=== PATIENT | female | born 1960 | race African-American/Black ===

== ENCOUNTER 2017-08-24 04:53 | Inpatient (IN) | payer OTHER, BC ==
[~2017-08-24] VITALS: Ht 172.7 cm; Wt 97.0 kg
[2017-08-24] VITALS (7 sets, daily range): BP systolic 116–163; BP diastolic 71–100
--- NOTE | ~2017-08-24 | H ---
[facility] [place] [address] HISTORY AND PHYSICAL Name: JOSE MANUEL GRAHAM Room #: 202-P ADM IN M.R.#: [id number] Admission: 08/24/17 Attend Phys: Karly Tate Discharge: Date of : 60 Report #: [id number] THIS REPORT FOR: //name// CC: Juma Tamez DATE OF SERVICE: 08/24/2017 HISTORY OF PRESENT ILLNESS: A 57-year-old female from a respiratory fdc with evidence of shortness of breath. This patient has ALS and is totally debilitated and really has a difficult time doing much for herself and became more short of breath during the night and had to be transferred here where the findings of left pneumonia with pleural effusion were identified and she was subsequently admitted. She has a long-standing history of ALS and has a tracheostomy. PAST MEDICAL HISTORY: Background history of hypertension, ulcerative colitis. She has had a previous cholecystectomy. MEDICATIONS: List which includes Flonase, Lexapro, Lasix, pantoprazole, potassium, multivitamin, carvedilol, losartan, tramadol, amitriptyline, and Colazal. ALLERGIES: SULFA CLASS. FAMILY HISTORY: Noncontributory. SOCIAL HISTORY: She is disabled. Does not smoke or drink, but smoked in the past. REVIEW OF SYSTEMS: Otherwise, negative. PHYSICAL EXAMINATION: GENERAL: Shows this lady to be awake, alert. She is able to communicate with a weak voice with a Pass[place] valve. HEENT: Otherwise, negative. NECK: Supple, without thyromegaly or adenopathy. CHEST: Diminished. CARDIOVASCULAR: Shows a regular rate and rhythm. ABDOMEN: Soft and nontender. EXTREMITIES: Showed the findings of generalized weakness from ALS. ASSESSMENT: This is a patient with recurrent respiratory failure from amyotrophic lateral sclerosis and poor pulmonary clearance with pneumonia and pleural effusion. [facility] [address] [place] [address] HISTORY AND PHYSICAL Name: JOSE MANUEL GRAHAM Room #: 202-P ADM IN [facility]#: [id number] Admission: 08/24/17 Attend Phys: Karly Tate Discharge: Date of : 60 Report #: [id number] PLAN: Pulmonary toilet. Pulmonary consultation. She may need a thoracentesis. By: [id number] Juma Tamez MD /nt
--- NOTE | ~2017-08-24 | HC ---
[facility] [place] [address] CONSULTATION Name: JOSE MANUEL GRAHAM Karly Room #: 244-P ADM IN M.R.#: [id number] Admission: 08/24/17 Attend Phys: Karly Tate Discharge: Date of : 60 Report #: [id number] THIS REPORT FOR: //name// CC: Juma Tamez TYPE OF REPORT: Infectious diseases consultation. REASON FOR CONSULTATION: I was asked to evaluate concerning fever post-bronchoscopy. HISTORY OF PRESENT ILLNESS: The patient was a 57-year old with ALS diagnosed this past year with progressive weakness, now respiratory failure. Hospitalized last to [facility] in June of this year with pneumonia. She has a tracheostomy placed and chronic respiratory failure. She was then transferred from to [facility]. On 08/24/2017, she was transferred to [facility] because of progressive dyspnea. Chest x-ray revealed basilar infiltrates, right greater than left. She was afebrile with normal white count. Treated with broad antibiotic coverage to include vancomycin, Levaquin and Zosyn. No cultures were obtained during her hospital stay. Today, he underwent bronchoscopy where she was diagnosed with mucus plugging involving the right upper lobe, mild tracheomalacia, right and left main stem bronchi, extrinsic compression involving both lower lobes, right greater than left with moderate secretions in the left main stem bronchus. Following this, she developed fever. Hemodynamically, he has remained stable. ALLERGIES: Include SULFA. MEDICATIONS: As noted on her MAR, now on Unasyn. PAST MEDICAL HISTORY: ALS, respiratory failure, ulcerative colitis and cholecystectomy. FAMILY HISTORY: Noncontributory. SOCIAL HISTORY: Nonsmoker but did smoke in the past. No significant alcohol intake. No HIV risk factors. REVIEW OF SYSTEMS: The patient reports no rash or decubiti. She is hungry. No vomiting or diarrhea. No dysuria. No decubiti. Denies any chest pain. Her tracheostomy is a cuff, was trached, continues to have some air leakage. PHYSICAL EXAMINATION: GENERAL: She is alert and cooperative and pleasant. She was conversant. VITAL SIGNS: Maximum temperature today was 100.7 degrees and blood pressure dropped down in the 80s and now systolic is above 100-125. She remains on FIO2 of 50%. SKIN: Unremarkable. Tracheostomy site was unremarkable. [address] [address] CONSULTATION Name: JOSE MANUEL GRAHAM Room #: 244-P ADM IN M.R.#: [id number] Admission: 08/24/17 Attend Phys: Karly Tate Discharge: Date of : 60 Report #: [id number] LUNGS: Consolidation in the bases bilaterally, most predominant in the right posterior chest. HEART: Regular without murmur. ABDOMEN: Soft and nontender. EXTREMITIES: Unremarkable. Generalized weakness, upper and lower extremities. Right upper extremity peripheral IV was unremarkable. LABORATORY DATA: Troponin 0.07. D-dimer 4.2. Sodium 140, potassium 3.3, bicarbonate 26 and creatinine 0.7. Liver function test normal. Hemoglobin 12.3; white count 9.1 and platelet count 246,000. Blood cultures negative to date. RADIOLOGICAL DATA: Ultrasound of the lower extremities, right femoral vein is small compared to the left. Right popliteal artery does not completely compressed compatible with chronic thrombus or scarring. Chest x-ray, bilateral basilar infiltrates, right greater than left. Bronchoscopy cultures are pending. IMPRESSION AND PLAN: A 57-year old with fever in the setting of respiratory failure, mucus plugging and basilar infiltrates. No resistant organisms have yet been identified. I suspect her fever was more related to post-bronchoscopy inflammatory reaction. I would recommend continuing Unasyn and await on culture results. Her methicillin-resistant Staphylococcus aureus screen was negative. So far no drug resistant organisms have been identified. The patient was still not in with the ventilator per her sensation. We will have respiratory therapist come by and look at her again. We will follow her laboratory studies and cultures. Adjust antibiotics as necessary. I have discussed evaluation and plan with nursing staff at the bedside. <ELECTRONICALLY SIGNED> By: Jelani Tamez MD 08/28/17 0917 [id number] Jelani Tamez MD /nt
--- NOTE | ~2017-08-24 | EKG ---
[address] [place] [address] ELECTROCARDIOGRAM REPORT Name: JOSE MANUEL GRAHAM Room #: 244-P ADM IN M.R.#: [id number] Admission: 08/24/17 Attend Phys: Karly Tate Discharge: Date of : 60 Report #: [id number] THIS REPORT FOR: //name// [facility] Test Date: 2017-08-27 Test Time: 16:18:20 Pat Name: JOSE MANUEL GRAHAM Department: Room: 244 Gender: F Electronic Scale Assembler And Tester: Karly DEE : 1960 Requested By: Tawanda Kirkland Order Number: [id number] MD: Oniel Anderson Measurements Intervals [place] Rate: 112 P: 223 AL: 144 QRS: 0 QRSD: 141 T: 39 QT: 436 QTc: 596 Interpretive Statements Sinus tachycardia Left ventricular hypertrophy Prolonged QT interval Compared to ECG 04/22/2014 09:07:28 Sinus bradycardia no longer present QT has lengthened Electronically Signed On 08-28-2017 8:33:02 CDT by Oniel Anderson [email or web address] <ELECTRONICALLY SIGNED> By: Oniel Anderson MD, [facility] 08/28/17 0833 1618 161 Oniel Anderson MD, [facility] /EPI
--- NOTE | ~2017-08-24 | O ---
[facility] [place] [address] OPERATIVE REPORT Name: JOSE MANUEL GRAHAM Room #: 244-P [facility] IN M.R.#: [id number] Admission: 08/24/17 Attend Phys: Karly Tate Discharge: Date of : 60 Report #: [id number] THIS REPORT FOR: //name// CC: Juma Kirkland MD CLINICAL HISTORY: A 57-year-old -[place]oc[place] female with ALS, chronic respiratory failure, now with progressive hypoxia, significant bilateral atelectasis. Bronchoscopy was performed. POSTOPERATIVE DIAGNOSES: 1. Mucus plugging involving the right upper lobe. 2. 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 3. Extrinsic compression involving both lower lobes, greater in the right than the left. 4. Moderate secretion, left mainstem bronchus, clear. DESCRIPTION OF PROCEDURE: Following obtaining consent and risks and benefits have been explained to the patient, which include infection, bleeding, pneumothorax, the procedure was performed in endoscopy suite. The patient did not receive any sedation as she has a previously placed tracheostomy tube. She was given 1% lidocaine to the airways. Through the previously placed tracheostomy tube, a flexible fiberoptic bronchoscope was introduced without difficulty. The distal trachea was unremarkable, derrick was unremarkable. The left mainstem bronchus shows thick clear secretions seen in the airways. The left upper lobe, left lower lobe were grossly unremarkable other than mild to moderate clear secretions seen. Right mainstem bronchus was unremarkable. Mucus plugging was noted involving the right upper lobe. Secretions were white without evidence of purulent secretions. Right mainstem bronchus, right lower lobe was unremarkable other than mild clear secretions. In both of the lobes, there was extrinsic compression, more in the right lower lobe than the left. Mild tracheobronchomalacia was also noted seen in both the right and left mainstem bronchus. Aggressive washing and suctioning was performed in the right upper lobe. Bronchial wash will be sent for studies. Minimal bleeding was noted. Otherwise, the patient tolerated the procedure well. Saturation and vital signs are within normal range except for mildly elevated blood pressure. This will be addressed. [facility] [address] [place] [address] OPERATIVE REPORT Name: JOSE MANUEL GRAHAM Room #: 244-P [facility] IN .R.#: [id number] Admission: 08/24/17 Attend Phys: Karly Tate Discharge: Date of : 60 Report #: [id number] Bronchial wash will be sent for microbiologic studies. <ELECTRONICALLY SIGNED> By: Feliz Feng MD 08/27/17 1815 1033 [id number] Feliz Feng MD /nt
--- NOTE | ~2017-08-24 | HC ---
[facility] [address] CONSULTATION Name: JOSE MANUEL GRAHAM Room #: 202-P ADM IN M.R.#: [id number] Admission: 08/24/17 Attend Phys: Karly Tate Discharge: Date of : 60 Report #: [id number] THIS REPORT FOR: //name// CC: Bud Tamez DATE OF SERVICE: 08/24/2017 REFERRING PHYSICIAN: Dr. Juma Tamez. REASON FOR REFERRAL: Progressive dyspnea. HISTORY OF PRESENT ILLNESS: The patient is a 57-year-old female who is admitted with dyspnea, hypoxia. A pulmonary consultation was requested. The patient was diagnosed with ALS in 2016. She states that her weakness has progressively worsened where since 11/2016 she has not been able to walk. In June of this year she was hospitalized at [facility] for pneumonia. She was there for about a month. A tracheostomy was placed for chronic respiratory failure. She was then transferred to [facility]. She was doing fairly well until a day prior to presentation the patient became dyspneic and was admitted to the hospital. Chest x-ray performed on admission revealed small lung volumes, right lower lobe atelectasis and no infiltrates, small bilateral pleural effusions. Otherwise, she appears mildly dyspneic. She is not able to cough up secretions. She denies any chest pain. The patient denies any past history of chronic lung disease. She has never smoked. PAST MEDICAL HISTORY: As mentioned above, ALS since 2017, generalized weakness with being unable to walk since 11/2016, recent pneumonia resulting in chronic respiratory failure, status post tracheostomy, ulcerative colitis, prior cholecystectomy. PAST SURGICAL HISTORY: As mentioned above. CURRENT MEDICATIONS: Reviewed in the MAY. ALLERGIES: SULFA, REACTIONS UNSPECIFIED. FAMILY HISTORY: Noncontributory. [facility] [address] [place] [address] CONSULTATION Name: JOSE MANUEL GRAHAM Karly Room #: 202-P ADM IN [facility].#: [id number] Admission: 08/24/17 Attend Phys: Karly Tate Discharge: Date of : 60 Report #: [id number] SOCIAL HISTORY: She has family members. She denies any alcohol use. She has smoked in the past, but quit many years ago. REVIEW OF SYSTEMS: As mentioned above. It is notable for progressive weakness. Again, she has not been able to walk since 11/2016. PHYSICAL EXAMINATION: GENERAL: She is awake, alert, in mild distress due to dyspnea. VITAL SIGNS: Temperature is 98.4 degrees Fahrenheit, pulse is 100, respiratory rate is 20, blood pressure is 130/88 mmHg, saturation 98%. HEENT: Normocephalic, atraumatic. NECK: Supple, without any lymphadenopathy or thyromegaly. Status post trach. CHEST: Breath sounds are decreased bilaterally. No obvious wheezes. No crackles. CARDIOVASCULAR: Normal S1, S2. There are no murmurs or gallop. There is no JVD. There is no carotid bruit. Pulses are 2+/4+ bilaterally. BREASTS: Deferred. ABDOMEN: Soft, nontender, no organomegaly or masses felt. GENITOURINARY: Deferred. RECTAL: Deferred. EXTREMITIES: There is no edema, cyanosis, or clubbing. NEUROLOGICAL: Notable for weakness involving extremities. LABORATORY DATA: Chest x-ray as mentioned above showing small lung volumes bilaterally, patchy infiltrates and/or atelectasis, particularly involving the right lower lobe, small bilateral pleural effusions. Lactic acid level is 1.0. Sodium 140, potassium 4.1, chloride 100, CO2 is 39, BUN is 8, creatinine is 0.4. Liver function enzymes unremarkable. WBC of 6200, hemoglobin is 13.3, platelets are normal. Albumin 3.1. IMPRESSION: 1. Progressive dyspnea, hypoxia in this 57-year-old female. Chest x-ray as mentioned above showing what appears to be bibasilar atelectasis, greater in the right than the left, small pleural effusion. Etiology probably related to mucus plugging resulting in atelectasis, particularly on the right side due to progressive weakness. Other considerations include pneumonia. Pulmonary embolus is felt to be less likely. The patient has been on deep venous thrombosis prophylaxis. 2. Recent pneumonia, resulting in chronic respiratory failure, status post tracheostomy. She is tolerating Passy [place] valve. Please see comments below. 3. Amyotrophic lateral sclerosis diagnosed in 2017, with progressive weakness, the patient has not been able to walk since 11/2016. 4. Elevated bicarbonate with a serum bicarbonate level of 39. Suspect the patient likely retains CO2. Baseline arterial blood gas will be obtained. 5. Ulcerative colitis. [address] [address] CONSULTATION Name: JOSE MANUEL GRAHAM Room #: 202-P [facility] IN M.R.#: [id number] Admission: 08/24/17 Attend Phys: Karly Tate Discharge: Date of : 60 Report #: [id number] RECOMMENDATION: Would recommend positive pressure ventilation, other pressure support or mechanical ventilation, chest physiotherapy including IPPB, etc. We will also recommend a CT chest to assess pleural effusion, infiltrate and/or atelectasis. If atelectasis is present, mucus plugging is likely, then the patient would likely benefit from therapeutic bronchoscopy. Agree with broad-spectrum antibiotics. Nosocomial infection should be covered. Baseline arterial blood gas will be ordered. Deep venous thrombosis and gastrointestinal prophylaxis will be addressed. Over time, with progressive weakness due to ALS, the patient will likely need some sort of p.r.n. ventilation, particularly during sleep. This will be further discussed with the patient down the road as the patient is somewhat hesitant being back on a respirator. Thank you for this consultation. <ELECTRONICALLY SIGNED> By: Feliz Feng MD 08/25/17 1445 [id number] Feliz Feng MD /nt
--- NOTE | ~2017-08-24 | EKG ---
[address] [place] [address] ELECTROCARDIOGRAM REPORT Name: JOSE MANUEL GRAHAM Room #: 244-P ADM IN M.R.#: [id number] Admission: 08/24/17 Attend Phys: Karly Tate Discharge: Date of : 60 Report #: [id number] THIS REPORT FOR: //name// [facility] Test Date: 2017-08-28 Test Time: 06:37:40 Pat Name: JOSE MANUEL GRAHAM Department: Room: 244 Gender: F Facilities Custodian: DELLA : 1960 Requested By: Oniel Anderson Order Number: [id number] MD: Oniel Anderson Measurements Intervals [place] Rate: 95 P: 39 [place]: 123 QRS: -3 QRSD: 83 T: 38 QT: 388 QTc: 488 Interpretive Statements Sinus rhythm Abnormal R-wave progression, early transition Left ventricular hypertrophy Borderline prolonged QT interval Compared to ECG 04/22/2014 09:07:28 No significant change was found Electronically Signed On 08-28-2017 8:40:00 CDT by Oniel Anderson [email or web address] <ELECTRONICALLY SIGNED> By: Oniel Anderson MD, [facility] 08/28/17 0840 6 6 Oniel Anderson MD, [facility] /EPI
[~2017-08-24 04:53] MED LIST: ASPIR 8181 M1 PO; COLAZAL750 M1 PO; DAILY VALUE1 EAC1 PO; FAMCICLOVIR500 MG PO; FAMOTIDINE PO; FLAGYL500 MG PO; FLONASE 0.05%50 MCG NASAL; IBUPROFEN; IBUPROFEN 800800 M1 PO; IRON18 MG PO; LIPITOR10 MG PO; LISINOPRIL10 MG PO; NORCO 5-325 TA1 EACH PO; NORCO 7.5-3251 EACH PO; OMEPRAZOLE40 MG PO; PEPCID20 MG PO; PERCOCET 5-3251 EACH PO; PREDNISONE 20 M20 MG PO; PROTONIX40 M2 PO; [UNRECOGNIZED DRUG - REMARK]
[2017-08-24] MEDS ORDERED: LEXAPRO 10 MG T10 M1 PO (05:14)
[2017-08-24] MEDS ORDERED: LASIX 20 MG TAB20 MG PO (05:15)
[2017-08-24] MEDS ORDERED: PROTONIX 20 MG20 M1 PO (05:15)
[2017-08-24] MEDS ORDERED: FLONASE 0.05%50 MCG NASAL (05:15)
[2017-08-24] MEDS ORDERED: KLOR-CON 1010 MEQ PO (05:16)
[2017-08-24] MEDS ORDERED: CARVEDILOL3.125 MG PO (05:17)
[2017-08-24] MEDS ORDERED: THERA1 EAC1 PO (05:17)
[2017-08-24] MEDS ORDERED: COZAAR 25 MG TA25 MG PO (05:18)
[2017-08-24] MEDS ORDERED: AMITRIPTYLINE100 MG PO (05:19)
[2017-08-24] MEDS ORDERED: TRAMADOL 50 MG50 MG PO (05:19)
[2017-08-24 05:43] LABS: ABSOLUTE NEUTROPHILS 4.9 thou/uL (1.4-8.2); BASOPHILS 0.6 % (0.0-2.0); EOSINOPHILS 1.5 % (0.0-3.0); HEMATOCRIT 41.1 % (37.0-47.0); HEMOGLOBIN 13.3 gm/dL (12.0-15.0); LYMPHOCYTES 12.1 % (24.0-44.0); MCH 26.6 pg (26.0-34.0); MCHC 32.3 g/dL (28.0-37.0); MCV 82.3 fL (80.0-100.0); MONOCYTES 6.6 % (1.0-8.0); PLATELET COUNT 242 thou/uL (150-400); POLYS 79.2 % (36.0-66.0); RDW 16.3 % (10.5-14.5); WBC 6.2 thou/uL (4.0-11.0)
[2017-08-24 05:50] LABS: CALCIUM 9.5 mg/dL (8.5-10.1); CREATININE 0.4 mg/dL (0.6-1.0); POTASSIUM 4.1 mmol/L (3.5-5.1)
[2017-08-24 05:56] LABS: ALBUMIN 3.1 g/dL (3.4-5.0); TOTAL BILIRUBIN 0.3 mg/dL (<0.1-1.0); TOTAL PROTEIN 7.7 g/dL (6.4-8.2)
[2017-08-25 05:00] VITALS: BP 130/77
[2017-08-25 06:26] LABS: HEMATOCRIT 38.3 % (37.0-47.0); HEMOGLOBIN 12.2 gm/dL (12.0-15.0); MCH 26.1 pg (26.0-34.0); MCHC 31.8 g/dL (28.0-37.0); MCV 82.2 fL (80.0-100.0); RBC 4.65 mil/uL (4.20-5.00); RDW 16.6 % (10.5-14.5); WBC 7.2 thou/uL (4.0-11.0)
[2017-08-25 06:42] LABS: CALCIUM 10.1 mg/dL (8.5-10.1); CREATININE 0.4 mg/dL (0.6-1.0); POTASSIUM 3.8 mmol/L (3.5-5.1)
[2017-08-25 07:33] VITALS: BP 136/84
[2017-08-25 11:54] VITALS: BP 134/84
[2017-08-25 12:59] LABS: BE(vivo) 10.7 mmol/L (-2 to +3); HCO3 37.5 mmol/L (22.0-26.0); PCO2 59.2 mmHg (35.0-45.0); PO2 71.6 mmHg (80.0-100.0); pH 7.419 (7.360-7.450); sO2 94.3 % (92.0-98.0)
[2017-08-25 15:03] VITALS: BP 121/76
[2017-08-25 19:08] VITALS: BP 138/93
[2017-08-26 04:09] LABS: HEMATOCRIT 38.2 % (37.0-47.0); HEMOGLOBIN 12.2 gm/dL (12.0-15.0); MCH 26.2 pg (26.0-34.0); MCHC 31.8 g/dL (28.0-37.0); MCV 82.3 fL (80.0-100.0); RBC 4.64 mil/uL (4.20-5.00); RDW 16.4 % (10.5-14.5); WBC 6.7 thou/uL (4.0-11.0)
[2017-08-26 04:26] LABS: CALCIUM 9.2 mg/dL (8.5-10.1); CREATININE 0.4 mg/dL (0.6-1.0); POTASSIUM 3.1 mmol/L (3.5-5.1)
[2017-08-26 04:49] VITALS: BP 138/84
[2017-08-26 07:53] VITALS: BP 165/93
[2017-08-26 15:53] VITALS: BP 137/80
[2017-08-26 19:35] VITALS: BP 146/88
[2017-08-27] VITALS (22 sets, daily range): BP systolic 83–134; BP diastolic 34–90
[2017-08-27 03:56] LABS: CALCIUM 9.5 mg/dL (8.5-10.1); CREATININE 0.3 mg/dL (0.6-1.0); POTASSIUM 3.6 mmol/L (3.5-5.1)
[2017-08-27 19:37] LABS: HEMOGLOBIN 12.3 gm/dL (12.0-15.0); MCH 26.2 pg (26.0-34.0); MCHC 32.2 g/dL (28.0-37.0); MCV 81.2 fL (80.0-100.0); RBC 4.68 mil/uL (4.20-5.00); RDW 16.3 % (10.5-14.5); WBC 9.1 thou/uL (4.0-11.0)
[2017-08-27 19:46] LABS: CALCIUM 9.5 mg/dL (8.5-10.1); CREATININE 0.7 mg/dL (0.6-1.0); POTASSIUM 3.3 mmol/L (3.5-5.1)
[2017-08-27 19:52] LABS: ALBUMIN 2.7 g/dL (3.4-5.0); TOTAL BILIRUBIN 0.6 mg/dL (<0.1-1.0); TOTAL PROTEIN 6.8 g/dL (6.4-8.2)
[2017-08-28] VITALS (42 sets, daily range): BP systolic 87–126; BP diastolic 58–96
[2017-08-28 00:53] LABS: BE(vivo) 5.9 mmol/L (-2 to +3); HCO3 26.3 mmol/L (22.0-26.0); PCO2 26.4 mmHg (35.0-45.0); PO2 103.1 mmHg (80.0-100.0); pH 7.617 (7.360-7.450); sO2 98.6 % (92.0-98.0)
[2017-08-28 04:20] LABS: CALCIUM 9.3 mg/dL (8.5-10.1); CREATININE 0.5 mg/dL (0.6-1.0)
[2017-08-28 04:21] LABS: POTASSIUM 2.7 mmol/L (3.5-5.1)
[2017-08-28 04:42] LABS: HEMATOCRIT 36.4 % (37.0-47.0); HEMOGLOBIN 11.9 gm/dL (12.0-15.0); MCH 26.5 pg (26.0-34.0); MCHC 32.6 g/dL (28.0-37.0); MCV 81.1 fL (80.0-100.0); RBC 4.5 mil/uL (4.20-5.00); RDW 16.2 % (10.5-14.5); WBC 7.4 thou/uL (4.0-11.0)
[2017-08-28 09:37] LABS: HCO3 25.2 mmol/L (22.0-26.0); PCO2 25.4 mmHg (35.0-45.0); PO2 89.2 mmHg (80.0-100.0); sO2 98.1 % (92.0-98.0)
[2017-08-28 09:38] LABS: pH 7.614 (7.360-7.450)
[2017-08-29] VITALS (19 sets, daily range): BP systolic 94–124; BP diastolic 57–86
[2017-08-29 05:27] LABS: BE(vivo) -0.3 mmol/L (-2 to +3); HCO3 24.5 mmol/L (22.0-26.0); PCO2 40.9 mmHg (35.0-45.0); PO2 124.4 mmHg (80.0-100.0); pH 7.396 (7.360-7.450); sO2 98.5 % (92.0-98.0)
[2017-08-29 05:53] LABS: CALCIUM 8.9 mg/dL (8.5-10.1); CREATININE 0.4 mg/dL (0.6-1.0); POTASSIUM 3.7 mmol/L (3.5-5.1)
[2017-08-29 05:55] LABS: CALCIUM 8.5 mg/dL (8.5-10.1); CREATININE 0.4 mg/dL (0.6-1.0); HEMATOCRIT 32.5 % (37.0-47.0); HEMOGLOBIN 10.4 gm/dL (12.0-15.0); MCH 26.4 pg (26.0-34.0); MCV 82.4 fL (80.0-100.0); POTASSIUM 3.8 mmol/L (3.5-5.1); RBC 3.94 mil/uL (4.20-5.00); RDW 17.3 % (10.5-14.5); WBC 6.4 thou/uL (4.0-11.0)
[2017-08-30 04:00] VITALS: BP 106/69
[2017-08-30 06:15] LABS: HEMOGLOBIN 10.6 gm/dL (12.0-15.0); MCH 26.4 pg (26.0-34.0); MCV 82.5 fL (80.0-100.0); RBC 3.99 mil/uL (4.20-5.00); RDW 16.8 % (10.5-14.5); WBC 6.4 thou/uL (4.0-11.0)
[2017-08-30 06:25] LABS: CALCIUM 8.9 mg/dL (8.5-10.1); CREATININE 0.5 mg/dL (0.6-1.0)
[2017-08-30 06:27] LABS: POTASSIUM 2.9 mmol/L (3.5-5.1)
[2017-08-30 08:01] VITALS: BP 111/71
[2017-08-30 12:00] VITALS: BP 128/73
[2017-08-30 19:39] VITALS: BP 149/103
[2017-08-31 03:39] VITALS: BP 113/77
[2017-08-31 06:04] LABS: CALCIUM 9.1 mg/dL (8.5-10.1); CREATININE 0.4 mg/dL (0.6-1.0); POTASSIUM 3.7 mmol/L (3.5-5.1)
[2017-08-31 08:25] VITALS: BP 112/73
[2017-08-31 11:49] VITALS: BP 117/74
[2017-08-31 16:23] VITALS: BP 152/103
[2017-08-31 19:17] VITALS: BP 128/84
[2017-09-01 04:21] VITALS: BP 103/69
[2017-09-01 08:34] VITALS: BP 139/83
[2017-09-01 12:09] VITALS: BP 150/103
[2017-09-01] MEDS ORDERED: DUONEB 2.5-0.5 M3 ML INH (13:38)
[2017-09-01] MEDS ORDERED: LEVAQUIN 250 M250 MG PER TUBE (13:38)
[2017-09-01] MEDS ORDERED: PRADAXA150 MG PO (13:39)
[2017-09-01] MEDS ORDERED: FENTANYL 0.50 MCG/ML IV PUSH (13:39)
[2017-09-01] MEDS ORDERED: ACETAMINOPHEN325 M1 PO (13:39)
[2017-09-01] MEDS ORDERED: MUCINEX600 MG PO (13:40)
[2017-09-01 16:39] VITALS: BP 135/95
== END 2017-09-01 21:35 | DRG 208 ==
LOC: ER 04:53 → 2N 07:04 → 3W 07:04 → EROBS 07:04 → 2N 07:06 → ICU 08-27 17:09 → 3W 08-29 17:38
PROVIDERS: Emergency Medicine; Internal Medicine; Internal Medicine Geriatric Medicine; Internal Medicine Pulmonary Disease
PROC: 5A1945Z Respiratory Ventilation, 24-96 Consecutive Hours (ICD-10-PCS; 2017-08-25)
PROC: 0BC48ZZ Extirpation of Matter from Right Upper Lobe Bronchus, Via Natural or Artificial Opening Endoscopic (ICD-10-PCS; principal; 2017-08-27)
DX: J18.9 Pneumonia, unspecified organism (principal); J96.21 Acute and chronic respiratory failure with hypoxia; J96.22 Acute and chronic respiratory failure with hypercapnia; J98.11 Atelectasis; J90 Pleural effusion, not elsewhere classified; K51.90 Ulcerative colitis, unspecified, without complications; T17.590A Other foreign object in bronchus causing asphyxiation, initial encounter; G12.21 Amyotrophic lateral sclerosis; J39.8 Other specified diseases of upper respiratory tract; G47.33 Obstructive sleep apnea (adult) (pediatric); E11.9 Type 2 diabetes mellitus without complications; R00.0 Tachycardia, unspecified; I95.9 Hypotension, unspecified; D64.9 Anemia, unspecified; E87.6 Hypokalemia; I10 Essential (primary) hypertension; Z90.49 Acquired absence of other specified parts of digestive tract; Z88.2 Allergy status to sulfonamides; Z88.8 Allergy status to other drugs, medicaments and biological substances; Z87.891 Personal history of nicotine dependence; X58.XXXA Exposure to other specified factors, initial encounter; Y93.89 Activity, other specified; Y92.89 Other specified places as the place of occurrence of the external cause; Y99.8 Other external cause status; Z86.718 Personal history of other venous thrombosis and embolism; Z79.899 Other long term (current) drug therapy; Z93.0 Tracheostomy status; Z88.6 Allergy status to analgesic agent
CPT/HCPCS: 10081; 10203; 10879

== ENCOUNTER → 2017-09-11 | Outpatient (CLI) | payer BC, OTHER ==
[~2017-09-11] MED LIST changes: +ACETAMINOPHEN325 M1 PO; +AMITRIPTYLINE100 MG PO; +CARVEDILOL3.125 MG PO; +COZAAR 25 MG TA25 MG PO; +DUONEB 2.5-0.5 M3 ML INH; +ELIQUIS5 MG PO; +FENTANYL 0.50 MCG/ML IV PUSH; +FIBER350 GM PER TUBE; +KLOR-CON 1010 MEQ PO; +LANSOPRAZOLE30 MG PO; +LASIX 20 MG TAB20 MG PO; +LEVAQUIN 250 M250 MG PER TUBE; +LEXAPRO 10 MG T10 M1 PO; +MUCINEX600 MG PO; +ONDANSETRON HCL4 M2 PO; +PRADAXA150 MG PO; +PROTONIX 20 MG20 M1 PO; +ROBITUSSIN100 MG/53 PO; +THERA1 EAC1 PO; +TRAMADOL 50 MG50 MG PO; +ZINC OXIDE57 GM TOP
[2017-09-11 09:24] VITALS: BP 146/79
[2017-09-11 11:38] LABS: APTT 25.7 Seconds (24.5-32.8); PROTIME 10.3 Seconds (9.3-11.4)
== END | disposition home or self-care (01) ==
LOC: SPEC 08:19
PROVIDERS: Radiology Vascular & Interventional Radiology
DX: Z43.1 Encounter for attention to gastrostomy (principal); I10 Essential (primary) hypertension; Z90.49 Acquired absence of other specified parts of digestive tract; G12.21 Amyotrophic lateral sclerosis; Z98.890 Other specified postprocedural states; E11.9 Type 2 diabetes mellitus without complications; Z79.4 Long term (current) use of insulin